=== PATIENT | female | born 1995 | race Caucasian/White ===

== ENCOUNTER 2020-04-04 20:34 | Inpatient (IN) ==
[2020-04-04] MEDS ORDERED: Mag Hydrox/Al Hydrox/Simeth 30 ML UDC PO PRN (22:51)
[2020-04-04] MEDS ORDERED: haloperidoL 5 MG TABLET PO PRN (22:51)
[2020-04-04] MEDS ORDERED: Haloperidol Lactate 5 MG/ML VIAL IM PRN (22:51)
[2020-04-04] MEDS ORDERED: *HR* LORazepam 1 MG TABLET PO PRN (22:51)
[2020-04-04] MEDS ORDERED: *HR* LORazepam 2 MG/ML VIAL IM PRN (22:51)
[2020-04-04] MEDS ORDERED: Nicotine 21 MG PATCH.TD24 TD SCH (23:00)
[2020-04-05] MEDS: Nicotine 21 MG PATCH.TD24 TD SCH (09:04)
[2020-04-05] MEDS: FLUoxetine 20 MG CAPSULE PO SCH (14:18)
[2020-04-05] MEDS ORDERED: MOM Conc 10 ML UD.LIQ PO PRN (22:02)
[2020-04-05] MEDS ORDERED: hydrOXYzine pamoate 25 MG CAPSULE PO PRN (22:02)
[2020-04-05] MEDS ORDERED: traZODone 50 MG TABLET PO PRN (22:02)
[2020-04-06] MEDS: Nicotine 21 MG PATCH.TD24 TD SCH (08:33)
[2020-04-06] MEDS: FLUoxetine 20 MG CAPSULE PO SCH (08:36)
[2020-04-06 09:45] VITALS: BP 121/74
== END 2020-04-06 13:05 | disposition home or self-care (01) | DRG 754 ==
LOC: EMEROOARM 20:34 → 1ANU 22:43
PROVIDERS: ADMIT Psychiatry & Neurology Psychiatry; ATTEND Psychiatry & Neurology Psychiatry